=== PATIENT | male | born 1965 | race Caucasian/White ===

== ENCOUNTER 2017-01-13 10:40 | Emergency (ER) | payer SELFPAY ==
[2017-01-13] MEDS ORDERED: Sodium Chloride 0.9% 2.5 ML Syringe FLUSH PRN (10:58)
[2017-01-13] MEDS ORDERED: Sodium Chloride 0.9% 10 ML Syringe FLUSH PRN (10:58)
--- NOTE | 2017-01-13 11:00 | EDM.PDOC ---
ED HISTORY OF PRESENT ILLNESS - General Chief Complaint: Respiratory Problem Stated Complaint: SHORTNESS OF BREATH SINCE [facility] Time Seen by Provider: 01/13/17 10:50 Source of Information: Reports: Patient History Limitations: Reports: No limitations - History of Present Illness INITIAL COMMENTS - FREE TEXT/NARRATIVE: HISTORY AND PHYSICAL: History of present illness: [Patient comes to the emergency room today by private vehicle. He complains of shortness of breath since January 03. 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 He believes that he was experiencing carbon monoxide poisoning. On January 08, he contacted his boss and requested to be moved to a different vehicle. His shortness of breath has improved but continues to be bothersome to him. Since then his symptoms have begun to improve. He reports a history of hypertension. Last saw his PCP in [place] about 6 months ago. he's been prescribed 5 blood pressure medications in the past but he refuses to take them. He does not like the way the medication makes him feel, and has not noticed a significant decrease in blood pressure. He states that it is not abnormal for him to see blood pressure readings in the 300s over 200s. With medication, BP was still 180s over 100s. he reports a history of "borderline" type 2 diabetes. he denies fever and chills, chest pain, abdominal pain, nausea and vomiting. No cough or sputum production. No change in his bowel or bladder habits. No swelling to his feet or lower legs. Review of systems: As per history of present illness and below otherwise all systems reviewed and negative. Past medical history: As per history of present illness and as reviewed below otherwise noncontributory. Surgical history: As per history of present illness and as reviewed below otherwise noncontributory. Social history: No reported history of drug or alcohol abuse. Family history: As per history of present illness and as reviewed below otherwise noncontributory. Physical exam: HEENT: Atraumatic, normocephalic. Wears glasses. mucous membranes pink and dry , throat clear. neck supple, lymphadenopathy. Lungs: Clear to auscultation, no wheezing crackles or rales. breath sounds equal bilaterally. Heart: S1S2, regular rate and rhythm. Abdomen: Normoactive bowel sounds. Soft, nondistended, nontender. Pelvis: Stable nontender. Genitourinary: Deferred. Rectal: Deferred. Extremities: Atraumatic, no cyanosis or edema to feet or lower legs. negative for cords or calf pain. Neurovascular unremarkable. Neuro: Awake, alert, oriented. Motor and sensory unremarkable throughout. Exam nonfocal. Diagnostics: [EKG, chest x-ray, CBC, CMP, troponin, urinalysis] Therapeutics: [Labetalol 20 mg IV push x 2, 1 L IV normal saline] Impression: [Uncontrolled HTN Hyperglycemia Type 2 DM Impaired kidney function] Plan: [Recommend 10 units of insulin which patient promptly refuses. Chest x-ray is negative for acute findings. Discuss lab results with patient. Recommended inpatient care to lower his blood pressure and blood sugar, as well as try to improve his kidney function. He refused hospitalization stating his his blood pressure is always elevated he doesn't like how he feels on blood pressure medication. He also states that he can get his blood sugar down to normal within 3 days by cutting out all sugar. Discussed that method may not be successful in bringing his sugars down to a healthy level and that elevated sugars impairs kidney function. Patient is adament that he does not want to be admitted. Encouraged him to return to the emergency room if he would like reevaluation or if new or different concerns arise. He is in agreement with this plan all questions are answered and concerns are addressed.] Definitive disposition and diagnosis as appropriate pending reevaluation and review of above. - Related Data Allergies/ADRs: Allergies Allergy/AdvReac Type Severity Reaction Status Date / Time No Known Allergies Allergy Verified 01/13/17 10:58 Home Meds: Home Meds . [No Known Home Meds] 01/13/17 [History] ED ROS GENERAL - Review of Systems Review Of Systems: ROS reveals no pertinent complaints other than HPI. ED EXAM, GENERAL - Physical Exam Exam: See Below Course - Vital Signs Last Recorded V/S: Last Vital Signs Temp 99 F 01/13/17 15:20 Pulse 76 01/13/17 15:20 Resp 18 01/13/17 15:20 BP 219/130 H 01/13/17 15:20 Pulse Ox 95 01/13/17 15:20 - Orders/Labs/Meds Orders: Active Orders 24 hr Category Date Time Status EKG Documentation Completion [RC] STAT Care 01/13/17 10:59 Active Saline Lock Insert [OM.PC] Stat Oth 01/13/17 10:58 Ordered Labs: Laboratory Tests 01/13/17 01/13/17 01/13/17 Range/Units 11:05 11:05 11:05 WBC 9.93 (4.0-11.0) K/uL RBC 4.99 (4.50-5.90) M/uL Hgb 14.6 (13.0-17.0) g/dL Hct 41.1 (38.0-50.0) % MCV 82.4 (80.0-98.0) fL MCH 29.3 (27.0-32.0) pg MCHC 35.5 (31.0-37.0) g/dL RDW Std Deviation 39.6 (28.0-62.0) fl RDW Coeff of [place] 13 (11.0-15.0) % Plt Count 144 L (150-400) K/uL MPV 10.40 (7.40-12.00) fL Neut % (Auto) 75.0 (48.0-80.0) % Lymph % (Auto) 17.4 (16.0-40.0) % [place] % (Auto) 6.1 (0.0-15.0) % Eos % (Auto) 0.9 (0.0-7.0) % Baso % (Auto) 0.6 (0.0-1.5) % Neut # 7.4 H (1.4-5.7) K/uL Lymph # 1.7 (0.6-2.4) K/uL [place] # 0.6 (0.0-0.8) K/uL Eos # 0.1 (0.0-0.7) K/uL Baso # 0.1 (0.0-0.1) K/uL Nucleated RBC % 0.0 /100WBC Nucleated RBCs # 0 K/uL ABG pH (7.35-7.45) ABG pCO2 (35-45) mmHG ABG pO2 (75-100) mmHG ABG HCO3 (22-26) mEq/L ABG Total CO2 ABG Base Excess (-2.0-2.0) ABG Carboxyhemoglobin (0-15) % Sodium 136 (136-146) mmol/L Potassium 3.5 (3.5-5.1) mmol/L Chloride 101 (98-110) mmol/L Carbon Dioxide 23 (21-31) mmol/L BUN 33 H (6.0-23.0) mg/dL Creatinine 2.4 H (0.6-1.5) mg/dL Est Cr Clr Drug Dosing 41.39 mL/min Estimated GFR (MDRD) 28.5 ml/min Glucose 523 H* (60-110) mg/dL Calcium 8.8 (8.8-10.8) mg/dL Total Bilirubin 0.5 (0.1-1.5) mg/dL AST 24 (5-40) IU/L ALT 44 (8-54) IU/L Alkaline Phosphatase 123 (40-150) Troponin I < 0.10 (0.0-0.29) NG/ML B-Natriuretic Peptide (<100) PG/ML Total Protein 6.5 (6.0-8.0) g/dL Albumin 3.6 (3.5-5.0) g/dL Globulin 2.9 (2.0-3.5) g/dL Albumin/Globulin Ratio 1.2 L (1.3-2.8) Urine Color Urine Appearance Urine pH (5.0-8.0) Ur Specific [place] (1.001-1.035) Urine Protein (NEGATIVE) mg/dL Urine Glucose (UA) (NEGATIVE) mg/dL Urine Ketones (NEGATIVE) mg/dL Urine Occult Blood (NEGATIVE) Urine Nitrite (NEGATIVE) Urine Bilirubin (NEGATIVE) Urine Urobilinogen (<2.0) EU/dL Ur Leukocyte Esterase (NEGATIVE) Urine RBC (0-2/HPF) Urine WBC (0-5/HPF) Ur Epithelial Cells (NONE-FEW) Urine Bacteria (NEGATIVE) 01/13/17 01/13/17 01/13/17 Range/Units 11:15 11:26 11:26 WBC (4.0-11.0) K/uL RBC (4.50-5.90) M/uL Hgb (13.0-17.0) g/dL Hct (38.0-50.0) % MCV (80.0-98.0) fL MCH (27.0-32.0) pg MCHC (31.0-37.0) g/dL RDW Std Deviation (28.0-62.0) fl RDW Coeff of [place] (11.0-15.0) % Plt Count (150-400) K/uL MPV (7.40-12.00) fL Neut % (Auto) (48.0-80.0) % Lymph % (Auto) (16.0-40.0) % [place] % (Auto) (0.0-15.0) % Eos % (Auto) (0.0-7.0) % Baso % (Auto) (0.0-1.5) % Neut # (1.4-5.7) K/uL Lymph # (0.6-2.4) K/uL [place] # (0.0-0.8) K/uL Eos # (0.0-0.7) K/uL Baso # (0.0-0.1) K/uL Nucleated RBC % /100WBC Nucleated RBCs # K/uL ABG pH (7.35-7.45) ABG pCO2 (35-45) mmHG ABG pO2 (75-100) mmHG ABG HCO3 (22-26) mEq/L ABG Total CO2 ABG Base Excess (-2.0-2.0) ABG Carboxyhemoglobin 2.7 (0-15) % Sodium (136-146) mmol/L Potassium (3.5-5.1) mmol/L Chloride (98-110) mmol/L Carbon Dioxide (21-31) mmol/L BUN (6.0-23.0) mg/dL Creatinine (0.6-1.5) mg/dL Est Cr Clr Drug Dosing mL/min Estimated GFR (MDRD) ml/min Glucose (60-110) mg/dL Calcium (8.8-10.8) mg/dL Total Bilirubin (0.1-1.5) mg/dL AST (5-40) IU/L ALT (8-54) IU/L Alkaline Phosphatase (40-150) Troponin I (0.0-0.29) NG/ML B-Natriuretic Peptide 408 H (<100) PG/ML Total Protein (6.0-8.0) g/dL Albumin (3.5-5.0) g/dL Globulin (2.0-3.5) g/dL Albumin/Globulin Ratio (1.3-2.8) Urine Color YELLOW Urine Appearance CLEAR Urine pH 6.0 (5.0-8.0) Ur Specific [place] 1.010 (1.001-1.035) Urine Protein 100 (NEGATIVE) mg/dL Urine Glucose (UA) >=1000 (NEGATIVE) mg/dL Urine Ketones NEGATIVE (NEGATIVE) mg/dL Urine Occult Blood TRACE-INTACT (NEGATIVE) Urine Nitrite NEGATIVE (NEGATIVE) Urine Bilirubin NEGATIVE (NEGATIVE) Urine Urobilinogen 0.2 (<2.0) EU/dL Ur Leukocyte Esterase NEGATIVE (NEGATIVE) Urine RBC 0-2 (0-2/HPF) Urine WBC 0-2 (0-5/HPF) Ur Epithelial Cells RARE (NONE-FEW) Urine Bacteria FEW (NEGATIVE) 01/13/17 Range/Units 14:05 WBC (4.0-11.0) K/uL RBC (4.50-5.90) M/uL Hgb (13.0-17.0) g/dL Hct (38.0-50.0) % MCV (80.0-98.0) fL MCH (27.0-32.0) pg MCHC (31.0-37.0) g/dL RDW Std Deviation (28.0-62.0) fl RDW Coeff of [place] (11.0-15.0) % Plt Count (150-400) K/uL MPV (7.40-12.00) fL Neut % (Auto) (48.0-80.0) % Lymph % (Auto) (16.0-40.0) % [place] % (Auto) (0.0-15.0) % Eos % (Auto) (0.0-7.0) % Baso % (Auto) (0.0-1.5) % Neut # (1.4-5.7) K/uL Lymph # (0.6-2.4) K/uL [place] # (0.0-0.8) K/uL Eos # (0.0-0.7) K/uL Baso # (0.0-0.1) K/uL Nucleated RBC % /100WBC Nucleated RBCs # K/uL ABG pH 7.492 H (7.35-7.45) ABG pCO2 33 L (35-45) mmHG ABG pO2 80 (75-100) mmHG ABG HCO3 25 (22-26) mEq/L ABG Total CO2 21.7 ABG Base Excess 1.7 (-2.0-2.0) ABG Carboxyhemoglobin (0-15) % Sodium (136-146) mmol/L Potassium (3.5-5.1) mmol/L Chloride (98-110) mmol/L Carbon Dioxide (21-31) mmol/L BUN (6.0-23.0) mg/dL Creatinine (0.6-1.5) mg/dL Est Cr Clr Drug Dosing mL/min Estimated GFR (MDRD) ml/min Glucose (60-110) mg/dL Calcium (8.8-10.8) mg/dL Total Bilirubin (0.1-1.5) mg/dL AST (5-40) IU/L ALT (8-54) IU/L Alkaline Phosphatase (40-150) Troponin I (0.0-0.29) NG/ML B-Natriuretic Peptide (<100) PG/ML Total Protein (6.0-8.0) g/dL Albumin (3.5-5.0) g/dL Globulin (2.0-3.5) g/dL Albumin/Globulin Ratio (1.3-2.8) Urine Color Urine Appearance Urine pH (5.0-8.0) Ur Specific [place] (1.001-1.035) Urine Protein (NEGATIVE) mg/dL Urine Glucose (UA) (NEGATIVE) mg/dL Urine Ketones (NEGATIVE) mg/dL Urine Occult Blood (NEGATIVE) Urine Nitrite (NEGATIVE) Urine Bilirubin (NEGATIVE) Urine Urobilinogen (<2.0) EU/dL Ur Leukocyte Esterase (NEGATIVE) Urine RBC (0-2/HPF) Urine WBC (0-5/HPF) Ur Epithelial Cells (NONE-FEW) Urine Bacteria (NEGATIVE) Meds: Medications Discontinued Medications Generic Name Dose Route Start Last Admin Trade Name Freq PRN Reason Stop Dose Admin Sodium Chloride 1,000 mls @ 999 mls/hr 01/13/17 12:00 01/13/17 12:12 Normal Saline IV 01/13/17 13:00 999 mls/hr STAT ONE Administration Insulin Human Regular 10 unit 01/13/17 12:01 Novolin R SUBCUT 01/13/17 12:02 ONETIME ONE Protocol Labetalol HCl 20 mg 01/13/17 11:10 01/13/17 11:31 Normodyne IVPUSH 01/13/17 11:11 20 mg .BOLUS ONE Administration Labetalol HCl 20 mg 01/13/17 13:01 01/13/17 13:06 Normodyne IVPUSH 01/13/17 13:02 20 mg .BOLUS ONE Administration Nitroglycerin 1 gm 01/13/17 12:00 01/13/17 12:16 Nitro-Bid 2% TOP 01/13/17 12:01 1 gm ONETIME ONE Administration Sodium Chloride 10 ml 01/13/17 10:58 Saline Flush FLUSH ASDIRECTED PRN Keep Vein Open Sodium Chloride 2.5 ml 01/13/17 10:58 Saline Flush FLUSH ASDIRECTED PRN Keep Vein Open Departure - Departure Time of Disposition: 14:45 Disposition: Home, Self-Care 01 Condition: fair Clinical Impression: Shortness of breath Hypertension Qualifiers: Hypertension type: essential hypertension Qualified Code(s): I10 - Essential ( primary) hypertension Diabetes mellitus with hyperglycemia Qualifiers: Diabetes mellitus type: type 2 Diabetes mellitus intermediate project manager insulin use: without intermediate project manager use Qualified Code(s): E11.65 - Type 2 diabetes mellitus with hyperglycemia Instructions: Shortness of Breath, [id number], Hyperglycemia, Hypertension Referrals: PCP,None [Primary Care Provider] - Forms: ED Department Discharge Additional Instructions: The following information is given to patients seen in the emergency department who are being discharged to home. This information is to outline your options for follow-up care. We provide all patients seen in our emergency department with a follow-up referral. The need for follow-up, as well as the timing and circumstances, are variable depending upon the specifics of your emergency department visit. If you don't have a primary care physician on staff, we will provide you with a referral. We always advise you to contact your personal physician following an emergency department visit to inform them of the circumstance of the visit and for follow-up with them and/or the need for any referrals to a consulting specialist. The emergency department will also refer you to a specialist when appropriate. This referral assures that you have the opportunity for follow-up care with a specialist. All of these measure are taken in an effort to provide you with optimal care, which includes your follow-up. Under all circumstances we always encourage you to contact your private physician who remains a resource for coordinating your care. When calling for follow-up care, please make the office aware that this follow-up is from your recent emergency room visit. If for any reason you are refused follow-up, please contact the [facility] emergency department at and asked to speak to the emergency department charge nurse. [facility] [address] [place] [id number] Followup with your local healthcare provider at the clinic listed above in 48- 72 hours. If you are going to remain in the [facility] you should be established with a local provider. Return to ER if you have any other concerns or as needed as discussed. - My Orders Last 24 Hours: My Active Orders 01/13/17 10:58 Saline Lock Insert [OM.PC] Stat 01/13/17 10:59 EKG Documentation Completion [RC] STAT - Assessment/Plan Last 24 Hours: My Active Orders 01/13/17 10:58 Saline Lock Insert [OM.PC] Stat 01/13/17 10:59 EKG Documentation Completion [RC] STAT
[2017-01-13] MEDS ORDERED: Labetalol 5 MG/ML 5 ML Syringe IVPUSH ONE ×2 (11:10→13:01)
--- NOTE | 2017-01-13 11:33 | CR ---
EXAMINATION: Two-view chest (PA and Lateral views). HISTORY: Shortness of breath. FINDINGS: The trachea is midline. The cardiomediastinal silhouette is within normal limits. No pulmonary infil trates, effusions or pneumothorax. Osseous structures appear unremarkable. IMPRESSION: No acute cardiopulmonary process.
[2017-01-13] MEDS ORDERED: Sodium Chloride 0.9% 1,000 ML IV ONE (12:00)
[2017-01-13] MEDS ORDERED: Nitroglycerin 2% Oint 1 GM UD Packet TOP ONE (12:00)
[2017-01-13] MEDS ORDERED: Insulin Regular, Human 100 Units/ML 10 ML Vial SUBCUT ONE (12:01)
[2017-01-13 15:24] VITALS: BP 219/130
== END 2017-01-13 15:20 | disposition home or self-care (01) ==
LOC: MW.ED 10:40
DX: R06.02 Shortness of breath (principal); I10 Essential (primary) hypertension; E11.65 Type 2 diabetes mellitus with hyperglycemia
CPT/HCPCS: 36415; 36600; 71020; 80053; 81001; 82375; 82803; 83880; 84484; 85025; 93005; 96361; 96374; 96376; 99285; A9270; J7040; 99284